=== PATIENT | female | born 1990 | race Caucasian/White ===

== ENCOUNTER 2017-09-01 10:13 | Emergency (ER) | END 2017-09-01 10:33 | disposition home or self-care (01) ==

== ENCOUNTER 2017-09-06 09:40 | Emergency (ER) | END 2017-09-06 11:21 | disposition home or self-care (01) ==

== ENCOUNTER 2018-03-12 09:39 | Inpatient (IN) | payer MEDICAID ==
[~2018-03-12] VITALS: Ht 154.9 cm; Wt 108.7 kg
[2018-03-12] MEDS: LACTATED RINGER'S 1,000 ML IV SCH ×2 (06:00→11:18)
[~2018-03-12 09:39] MED LIST: ACET500C5 PO; EPINEPHrine 1 MG INJ ONE; SODI126M NASAL; VALA10004 PO
[2018-03-12 10:36] VITALS: BP 116/67; PULSE 95; RESP 18
[2018-03-12 10:38] VITALS: Ht 154.9 cm; Wt 108.7 kg
[2018-03-12] MEDS ORDERED: OXYTOCIN 30 UNITS/LR 500 ML IV PRN ×2 (11:00→17:00)
[2018-03-12] MEDS ORDERED: METHYLERGONOVINE 0.2 MG INJ IM PRN ×2 (11:00→17:00)
[2018-03-12] MEDS ORDERED: CARBOPROST 250 MCG INJ IM PRN ×2 (11:00→17:00)
[2018-03-12] MEDS ORDERED: CEFAZOLIN 2 GM/50 ML (PMX) 50 ML IVPB SCH (11:00)
[2018-03-12] MEDS ORDERED: MISOPROSTOL 200 MCG TAB PR PRN ×2 (11:00→17:00)
[2018-03-12] MEDS ORDERED: ONDANSETRON 4 MG INJ IV STA (11:11)
[2018-03-12] MEDS ORDERED: METOCLOPRAMIDE 10 MG INJ IV ONE (11:30)
[2018-03-12] MEDS ORDERED: FAMOTIDINE 20 MG INJ IV ONE (11:30)
--- NOTE | 2018-03-12 12:02 | HP ---
Date/Time of Note Date/Time of Note DATE: 03/12/18 TIME: 11:57 OB - History Hx of Present Free Text/Dictation 27 years old female . 39 weeks with history of previous , admitted to the hospital at 39 weeks gestation for repeat top taper machine Complaint: 39 weeks history of previous Estimated Due Date: Mar 19, 2018 : 4 Para: 3 Care: Good Care Ultrasounds: Normal mid trimester US Obstetrical Complications: None Past Family/Social History * Past Medical, Surgical, Family and Obstetric Histories reviewed from chart. Rubella: immune RPR/VDRL: Negative GBS Status: Negative HBsAG: Negative OB Admission Exam Vital Signs Vital Signs Vital Signs Date Temp Pulse Resp B/P (MAP) Pulse Ox O2 O2 Flow FiO2 Time Delivery Rate 03/12/18 98.6 95 18 116/67 Room Air 10:36 (83) Physical Exam HEENT: WNL Heart: Rhythm Normal Lungs: Clear, Equal Abdomen: WNL Extremities: Normal Reflexes: Normal Cervical Dilatation: None Station: -2 Membranes: Intact Heart Rate: 130's Accelerations: Accelerations Present Decelerations: No Decelerations Varibility: Moderate Last 72 hours Lab Results CBC & BMP 03/12/18 10:50 OB Assessment/Plan Reason for admission: other (39 weeks . History of previous ) Other plan: 27 years old . 39 weeks . Admitted to the hospital for repeat C- section. Complication of the surgery including but not limited to bowel bladder injury wound infection and hematoma explained. All questions answered. JUAN M GRIER MD Mar 12, 2018 12:02
--- NOTE | 2018-03-12 12:06 | PREAC ---
Date/Time of Note Date/Time of Note DATE: 03/12/18 TIME: 12:05 Anesthesia Eval and Record Evaluation Time Pre-Procedure Interview DATE: 03/12/18 TIME: 12:05 Age 27 Sex female NPO: 8 hrs Preoperative diagnosis term ,previous Csection Planned procedure repeat Csection Past Medical History Past Medical History: Includes GI: Morbid obesity Surgery & Anesthesia Issues No known issue Meds Anticoagulation: No Beta Maciej within 24 hr: No Reason Beta Maciej not given: Pt. not on B-Maciej Active Scripts Acetaminophen* (Tylophen*) 500 Mg Capsule, 1 CAP PO Q6 PRN for PAIN AND OR ELEVATED TEMP, #30 CAP Prov:ROSINA DUARTE PA-C 09/06/17 Valacyclovir HCl (Valtrex) 1,000 Mg Tablet, 1000 MG PO TID for 7 Days, TAB Prov:ROSINA DUARTE PA-C 09/06/17 Sodium Chloride (Saline Nasal Mist) 126 Ml Mist, 1 SPRAY NASAL DAILY PRN for NASAL CONGESTION for 5 Days, BOTTLE Prov:MOSHE BUSH PA-C 09/01/17 Acetaminophen* (Tylophen*) 500 Mg Capsule, 1 CAP PO Q6H PRN for PAIN AND OR ELEVATED TEMP, #20 CAP Prov:MOSHE BUSH PA-C 09/01/17 Current Medications Lactated Ringer's 1,000 ml @ 125 mls/hr Q8H IV Last administered on 03/12/18at 11:18; Admin Dose 125 MLS/HR; Start 03/12/18 at 10:36 Cefazolin Sodium/ Dextrose 50 ml @ 100 mls/hr ONCE IVPB ; Start 03/12/18 at 11:00 Oxytocin/Lactated Ringer's 500 ml @ 125 mls/hr POST IV ; Start 03/12/18 at 11:00 Oxytocin/Lactated Ringer's 500 ml @ 0 mls/hr ONCE PRN IV VAGINAL BLEEDING; Start 03/12/18 at 11:00 Methylergonovine Maleate (Methergine) 0.2 mg ONCE PRN IM VAGINAL BLEEDING; Start 03/12/18 at 11:00 Carboprost Tromethamine (Hemabate) 250 mcg ONCE PRN IM VAGINAL BLEEDING; Start 03/12/18 at 11:00 Misoprostol (Cytotec) 1,000 mcg ONCE PRN IN VAGINAL BLEEDING; Start 03/12/18 at 11:00 Meds reviewed: Yes Allergies Coded Allergies: No Known Allergy (Unverified , 09/06/17) Allergies Reviewed: Yes Labs/Studies Labs Reviewed: Reviewed by anesthesiologist Result Diagram: 03/12/18 1050 Laboratory Tests 03/12/18 10:50 Blood Bank Test 03/12/18 10:50 Antibody Screen NEGATIVE Blood Type O POSITIVE Rh Immune Globulin Candidate NO test: Positive Pre-procedure Exam Last vitals Vital Signs Date Temp Pulse Resp B/P (MAP) Pulse Ox O2 O2 Flow FiO2 Time Delivery Rate 03/12/18 98.6 95 18 116/67 Room Air 10:36 (83) Airway: Adequate mouth opening, Adequate thyromental dist Mallampati: Mallampati III Teeth: Normal Lung: Normal Heart: Normal ASA Physical Status ASA physical status: 3 Emergency: None Planned Anesthetic Neuraxial: Spinal Planned Pain Management Sub-arachniod narcotics, Parenteral pain med, Other neuraxial med Pre-operative Attestations Prior to commencing anesthesia and surgery, the patient was re-evaluated, there was verification of: *The patient's identity *The results of appropriate recent lab work and preoperative vital signs *The above evaluation not changing prior to induction *Anesthetic plan, risk benefits, alternative and complications discussed with patient/family; questions answered; patient/family understands, accepts and wishes to proceed. MALAIKA MARINO MD Mar 12, 2018 12:06
[2018-03-12] MEDS ORDERED: morphine SULFATE/PF (10 MG/10 ML) INJ ONE (12:13)
[2018-03-12] MEDS ORDERED: OXYTOCIN 30 UNITS/LR 500 ML IV ONE (12:14)
[2018-03-12] MEDS ORDERED: BUPIVACAINE 0.75%/DEXT (SPINAL) 2 ML INJ ONE ×2 (12:14→12:27)
[2018-03-12] MEDS ORDERED: OXYTOCIN 10 UNIT INJ ONE (12:14)
[2018-03-12] MEDS ORDERED: FENTAnyl 50 MCG/ML VIAL IV PRN ×2 (12:30)
[2018-03-12] MEDS ORDERED: KETOROLAC 30 MG INJ IV PRN (12:30)
[2018-03-12] MEDS ORDERED: HYDROmorphONE 1 MG/5 ML IV SYRINGE IV PRN ×3 (12:30)
[2018-03-12] MEDS ORDERED: NALOXONE (0.4 MG/ML) INJ IV PRN (12:30)
[2018-03-12] MEDS ORDERED: ZOLPIDEM 5 MG TAB PO PRN (12:30)
[2018-03-12] MEDS ORDERED: ONDANSETRON 4 MG INJ IV PRN ×2 (12:30)
[2018-03-12] MEDS ORDERED: HYDROmorphONE 0.5 MG/0.5 ML SYG IV PRN ×2 (12:30)
[2018-03-12] MEDS ORDERED: DIPHENHYDRAMINE 50 MG INJ IV PRN ×2 (12:30)
[2018-03-12] MEDS ORDERED: PHENYLephrine (100 MCG/ML) 10ML SYG ONE (12:37)
[2018-03-12] MEDS: OXYTOCIN 30 UNITS/LR 500 ML IV SCH ×3 (14:15→20:58)
--- NOTE | 2018-03-12 14:29 | OPR ---
Date/Time of Note Date/Time of Note DATE: 03/12/18 TIME: 14:12 Operative Report Free Text/Dictation 27 years old history of previous admitted at 39 weeks gestation for repeat with request for voluntary sterilization bilateral tubal ligation she has been informed of failure rate of tubal ligation, Increased risk of ectopic Future failure to conceive. Also complication of including but not limited to bowel bladder injury. Wound infection and hematoma, Procedure Date: Mar 12, 2018 Preoperative Diagnosis 39 weeks history of previous . She has signed consent for voluntary sterilization bilateral tubal ligation Postoperative Diagnosis Same as above Operation/Procedure Performed Repeat bilateral tubal ligation Surgeon see signature line Manager Of Financial ATTILA PALM Second Manager Of Financial: Yris Anesthesia Type: spinal Estimated Blood Loss: other (500 cc) Transfusion none Specimen 2 separate segments of right and left fallopian tube sent to pathology Grafts/Implants none Complications none Pt Condition Post Procedure: stable Procedure Description Under satisfactory spinal anesthesia patient prepped and draped and placed in supine position. Pfannenstiel incision was made.old scar was removed incision carried through the subcutaneous tissue. Fascia incised to the length of incision. Rectus muscle divided in midline. Peritoneum exposed and entered to a vertical incision. Exploration of abdomen revealed [gravid uterus at term normal-appearing tubes and ovaries.] Bladder flap was developed. Transverse incision was made in the lower segment of the uterus. Amniotic sac ruptured, [clear amniotic fluid noted.]Live baby girl was delivered from unengaged vertex.Naso oropharyngeal suction was performed. Baby handed to the team for immediate attention. Patient received 20 units of Pitocin. Placenta delivered manually intact. Uterine cavity cleaned with a wet sponge and drainage established. Uterus closed in 2 layers using Monocryl #1 in continuous fashion. Bilateral tubal ligation performed by identifying the right fallopian tube the fimbria grasped by a [place]. Fimbria and portion of the ampulla resected, suture material used #0 plain catgut was reinforced with the same suture material, cut end of the tube was cauterized and the specimen submitted to the pathology. The same procedure performed for the opposite side. Peritoneal cavity irrigated with warm saline. Sponge needle instrument reported to be correct. Abdominal peritoneum closed with 2-0 chromic catgut continuously. Fascia closed with #1 PDS in a continuous fashion. Subcutaneous tissue irrigated with warm saline and approximated with 2-0 chromic catgut skin closed with N sorb. Estimated blood loss [500]. Urine bag containing [200] mL of [clear] urine. Patient tolerated procedure well and transferred to recovery room in good condition. JUAN M GRIER MD Mar 12, 2018 14:25
--- NOTE | 2018-03-12 16:45 | NUR ---
Admitted to the unit, oriented to the room. Fundus firm, lochia moderate, denies pain at this time. Call light within reach.
[2018-03-12 16:50] VITALS: BP 111/50; PULSE 82; RESP 18
[2018-03-12] MEDS ORDERED: OXYCODONE/ACETAMINOPHEN (5/325) TAB PO PRN ×2 (17:00)
[2018-03-12] MEDS ORDERED: CEFAZOLIN 1 GM/50 ML (PMX) 50 ML IVPB SCH (17:00)
[2018-03-12] MEDS ORDERED: HYDROCODONE/APAP (5/325) TAB PO PRN (17:00)
[2018-03-12] MEDS ORDERED: LANOLIN HPA 1 PKT TOP PRN (17:00)
[2018-03-12 19:20] VITALS: BP_SYST 108; BP_SYST 98; BP_DIAS 59; BP_DIAS 69; PULSE 66; PULSE 81; RESP 19
[2018-03-12] MEDS: SENNA/DOCUSATE NA (8.6MG/50MG) TAB PO SCH (20:58)
[2018-03-12] MEDS ORDERED: VALACYCLOVIR 500 MG TAB PO SCH (21:00)
--- NOTE | 2018-03-12 21:43 | PAC ---
Date/Time of Note Date/Time of Note DATE: 03/12/18 TIME: 21:43 Post-Anesthesia Notes Post-Anesthesia Note Last documented vital signs Vital Signs Date Temp Pulse Resp B/P (MAP) Pulse Ox O2 O2 Flow FiO2 Time Delivery Rate 03/12/18 98.2 81 19 98/59 (72) 99 Room Air 19:20 Activity: WNL Respiratory function: WNL Cardiovascular function: WNL Mental status: Baseline Pain reasonably controlled: Yes Hydration appropriate: Yes Nausea/Vomiting absent: Yes MALAIKA MARINO MD Mar 12, 2018 21:43
[2018-03-13] VITALS: BP 111/59; PULSE 71; RESP 19
[2018-03-13] MEDS: KETOROLAC 30 MG INJ IV PRN ×2 (00:01→08:36)
[2018-03-13] MEDS: LACTATED RINGER'S 1,000 ML IV SCH ×3 (00:41→18:36)
[2018-03-13] MEDS: OXYTOCIN 30 UNITS/LR 500 ML IV SCH ×5 (00:41→20:41)
[2018-03-13 04:00] VITALS: BP 99/59; PULSE 74; RESP 20
--- NOTE | 2018-03-13 05:08 | NUR ---
eoss. stable. no respiratory distress. scanty lochia . fluids tolerated well . surgical incision intact clean & dry . patient get out from bed after 12 hours of delivery & no complaints of dizziness & ambulated good. pain iv med given once with no adverse reactions . bonding well with baby . fob at bedside for support. for cbc today
[2018-03-13] MEDS: SENNA/DOCUSATE NA (8.6MG/50MG) TAB PO SCH ×2 (09:00→21:24)
--- NOTE | 2018-03-13 09:41 | QN ---
Documentation Comment Post day 1 Afebrile Vital signs are stable Abdomen soft. Incision dry. Bowel sounds present. Ambulation encouraged Extremities normal JUAN M GRIER MD Mar 13, 2018 09:41
[2018-03-13] MEDS ORDERED: LACTATED RINGER'S 1,000 ML IV ONE (10:30)
--- NOTE | 2018-03-13 10:30 | NUR ---
Patient instructed to lye down flat as per Dr. Simpson's instructions. Patient agrees and verbalized understanding.
[2018-03-13 11:33] VITALS: BP 96/62; PULSE 86; RESP 14
--- NOTE | 2018-03-13 12:10 | NUR ---
Patient resting at this time. sleeping comfortably. no c/o at this time.
--- NOTE | 2018-03-13 14:15 | NUR ---
Patient remains comfortable at this time. still flat in bed.
[2018-03-13 17:06] VITALS: BP 119/76; PULSE 85; RESP 16
--- NOTE | 2018-03-13 17:45 | NUR ---
EOSS: Patient denies headache at this time. sitting in bed. reports feeling much better than this morning. Denies nausea or vomiting. Slept for a couple of hours this afternoon. Woodward catheter removed at this time. Due to void. Encouraged to call for assistance to get up to bathroom. Patient agrees and verbalizes understanding.
[2018-03-13] MEDS: IBUPROFEN 600 MG TAB PO SCH ×2 (18:38→23:52)
[2018-03-13 19:30] VITALS: BP 115/60; PULSE 92; RESP 19
[2018-03-13] MEDS: GUAIFENESIN/DM 5ML CUP PO PRN (21:24)
--- NOTE | 2018-03-13 21:47 | NUR ---
patient has cough & colds. called dr rice & ordered robitussin DM 10cc every 4 hours prn & ocean spray every 2 hours prn
[2018-03-13] MEDS: SALINE 0.65% 45 ML NAS SPRAY NASAL PRN (23:53)
[2018-03-14] MEDS: OXYTOCIN 30 UNITS/LR 500 ML IV SCH ×2 (00:41→04:41)
[2018-03-14] MEDS: LACTATED RINGER'S 1,000 ML IV SCH (02:36)
[2018-03-14 04:00] VITALS: BP 102/63; PULSE 80; RESP 20
[2018-03-14] MEDS: SALINE 0.65% 45 ML NAS SPRAY NASAL PRN ×2 (04:16→19:59)
[2018-03-14] MEDS: GUAIFENESIN/DM 5ML CUP PO PRN ×3 (04:16→20:07)
[2018-03-14] MEDS: IBUPROFEN 600 MG TAB PO SCH ×4 (05:52→23:10)
--- NOTE | 2018-03-14 06:32 | NUR ---
eoss. stable virtal signs. ambulating & voiding well. scanty lochia. has new meds for cough & colds , given & it helped her. bonding well with baby.pain well controlled with pain meds. no episode of headache in the entire shift.
[2018-03-14 07:50] VITALS: BP 87/59; PULSE 82; RESP 18
[2018-03-14] MEDS: SENNA/DOCUSATE NA (8.6MG/50MG) TAB PO SCH ×2 (09:16→21:20)
--- NOTE | 2018-03-14 13:07 | QN ---
Documentation Comment Post BTL day 2 Afebrile Vital signs are stable Abdomen soft. Incision dry. Bowel sounds present. Able to pass flatus. No bowel movement Enema recommended JUAN M RGIER MD Mar 14, 2018 13:07
[2018-03-14] MEDS ORDERED: NA PHOSPHATE/BIPHOS 133 ML ENEMA PR ONE (13:30)
[2018-03-14 15:52] VITALS: BP 107/64; PULSE 86; RESP 18
--- NOTE | 2018-03-14 17:57 | NUR ---
EOSS: VSS. AMBULATING AND VOIDING. SHOWERED TODAY. MOM CHOOSES TO COMBO FEED THE BABY. GOOD BONDING SEEN WITH THE BABY.
[2018-03-14] MEDS: HYDROCODONE/APAP (5/325) TAB PO PRN (19:24)
[2018-03-14 20:00] VITALS: BP 123/58; PULSE 95; RESP 20
[2018-03-15] MEDS: GUAIFENESIN/DM 5ML CUP PO PRN (01:32)
[2018-03-15] MEDS: SALINE 0.65% 45 ML NAS SPRAY NASAL PRN (01:32)
[2018-03-15 03:04] VITALS: BP 110/64; PULSE 75; RESP 20
--- NOTE | 2018-03-15 03:05 | NUR ---
EOSS COPING WELL WITH CARE OF BABY AND SELF, LOOKING FORWARD TO GOING HOME TODAY
[2018-03-15] MEDS: HYDROCODONE/APAP (5/325) TAB PO PRN ×2 (03:36→09:27)
[2018-03-15] MEDS: IBUPROFEN 600 MG TAB PO SCH ×2 (05:27→11:17)
[2018-03-15 08:00] VITALS: BP 86/61; PULSE 71; RESP 18
[2018-03-15] MEDS ORDERED: DIPHTH/TET/ACEL PERTUSS (ADULT) 0.5 ML VIAL IM* ONE (09:00)
[2018-03-15] MEDS: SENNA/DOCUSATE NA (8.6MG/50MG) TAB PO SCH (09:23)
--- NOTE | 2018-03-15 12:13 | PD.PPDC ---
REGULATORY COMPLIANCE DIRECTOR Discharge Instruction Condition [id number] Patient Condition: Hgxax7w Good Diet Eliek2Zl Diet: Gqigl9h Resume Regular Diet Activity/Restrictions Cvsou1Hd Activity: Fughk1d Normal Activity May Shower Aisfj4Vv Restrictions: Biqab3t No Exercising No Lifting No Driving No Sexual Activity Nothing in the Vagina No [place] No Tampons, douche Wound/Drain Care Instructions [id number] Wound/Drain Care Gfrjp9z Remove Steri Strips in 1 week Instructions: Follow-up Follow-up with Physician: 1, Week/Weeks Provider Information: Post instruction given recommended to make appointment to be seen at the office in 1 week Return to clinic for [id number] [employer]PER[employer]OR Instructions: Jojso5v Fever greater than 101 Chills Worsening abdominal pain Excessive Vaginal Bleeding More than 2 pads per hour Unable to tolerate diet [id number] OB Instructions: [id number] Breast Tenderness Depression Blurried Vision Headache Dgdiv6Md Surgical Instructions: Vcelj9v Incisional Drainage Incisional Redness JUAN M GRIER MD Mar 15, 2018 12:13
--- NOTE | 2018-03-15 12:16 | DS ---
Date/Time of Note Date/Time of Note DATE: 03/15/18 TIME: 12:15 Discharge Summary Admission/Discharge Info Admit Date/Time Mar 12, 2018 at 09:39 Discharge Date/Time March 15, 2018 at 1300 Discharge Diagnosis Post repeat BTL Patient Condition: Good Consults None Procedures Repeat bilateral tubal ligation Hx of Present Illness Term history of previous with request for BTL Hospital Course Satisfactory recovery uneventful Home Meds Active Scripts Acetaminophen* (Tylophen*) 500 Mg Capsule, 1 CAP PO Q6 PRN for PAIN AND OR ELEVATED TEMP, #30 CAP Prov:ROSINA DUARTE PA-C 09/06/17 Valacyclovir HCl (Valtrex) 1,000 Mg Tablet, 1000 MG PO TID for 7 Days, TAB Prov:ROSINA DUARTE PA-C 09/06/17 Sodium Chloride (Saline Nasal Mist) 126 Ml Mist, 1 SPRAY NASAL DAILY PRN for NASAL CONGESTION for 5 Days, BOTTLE Prov:MOSHE BUSH PA-C 09/01/17 Acetaminophen* (Tylophen*) 500 Mg Capsule, 1 CAP PO Q6H PRN for PAIN AND OR ELEVATED TEMP, #20 CAP Prov:MOSHE BUSH PA-C 09/01/17 Follow-up Plan Post instruction given recommended to make appointment to be seen at the office in 1 week Primary Care Provider Care Physician No Primary Time spent on discharge: < 30 minutes JUAN M GRIER MD Mar 15, 2018 12:16
--- NOTE | 2018-03-15 12:36 | NUR ---
PT DC'D HOME IN STABLE COND WITH BABY VIA WHEELCHAIR. PT WILL BE SEEN IN THE CLINIC IN [address] GRIER. DISCHARGE INST GIVEN AND ALL QUESTIONS ANSWERED AND PT VERBALIZED UNDERSTANDING OF ALL INFO GIVEN. Addendum: 03/15/18 at 1238 by NICHO FIGUEROA RN Amended: Links added.
== END 2018-03-15 13:14 | disposition home or self-care (01) | DRG 785 ==
LOC: L-D 09:39 → PP1 16:40
PROVIDERS: ADMIT Obstetrics & Gynecology; ATTEND Obstetrics & Gynecology
PROC: 0UL70ZZ Occlusion of Bilateral Fallopian Tubes, Open Approach (ICD-10-PCS; 2018-03-12)
PROC: 3E033VJ Introduction of Other Hormone into Peripheral Vein, Percutaneous Approach (ICD-10-PCS; 2018-03-12)
PROC: 10D00Z1 Extraction of Products of Conception, Low, Open Approach (ICD-10-PCS; principal; 2018-03-12 12:30)
DX: O34.211 Maternal care for low transverse scar from previous cesarean delivery (principal); Z30.2 Encounter for sterilization; Z3A.39 39 weeks gestation of pregnancy; Z37.0 Single live birth
CPT/HCPCS: 85025; 85610; 85730; 86592; 86850; 86900; 86901; 87340; 88302; 90686; 90715; 99464; J0171; J0690; J1885; J2274; J2370; J2405; J2590; J2765; J7120

== ENCOUNTER 2018-10-19 14:54 | Emergency (ER) | payer MEDICAID ==
[~2018-10-19] VITALS: Wt 90.0 kg
[~2018-10-19 14:54] MED LIST changes: +AMOX1TAB10 PO; -EPINEPHrine 1 MG INJ ONE; +OFLO5DRO46 RIGHT EYE
[2018-10-19 14:57] VITALS: BP 119/58; PULSE 68; RESP 18
--- NOTE | 2018-10-19 16:07 | ERD ---
ER Documentation Chief Complaint Chief Complaint right eye possible fb x 7 days HPI Patient is a 28 years old female no known past medical history presenting to the clinic for right eye irritation X 8 days. Reports scrubbing her bathroom he did with the metal scrub and believes that piece might of got into URI. She reports right eye pain with headache and redness. Patient denies using any OTC medication or eyedrops. She admits to blurriness of right eye. Patient reports that she has sensation of foreign body right eye. ROS All systems reviewed and are negative except as per history of present illness. Medications Home Meds Active Scripts Acetaminophen* (Tylophen*) 500 Mg Capsule, 1 CAP PO Q6 PRN for PAIN AND OR ELEVATED TEMP, #30 CAP Prov:ROSINA DUARTE PA-C 09/06/17 valACYclovir HCl (Valtrex) 1,000 Mg Tablet, 1000 MG PO TID for 7 Days, TAB Prov:ROSINA DUARTE PA-C 09/06/17 Sodium Chloride (Saline Nasal Mist) 126 Ml Mist, 1 SPRAY NASAL DAILY PRN for SHARA AL CONGESTION for 5 Days, BOTTLE Prov:MOSHE BUSH PA-C 09/01/17 Acetaminophen* (Tylophen*) 500 Mg Capsule, 1 CAP PO Q6H PRN for PAIN AND OR ELEVATED TEMP, #20 CAP Prov:MOSHE BUSH PA-C 09/01/17 Allergies Allergies: Coded Allergies: No Known Allergy (Unverified , 09/06/17) PMhx/Soc History of Surgery: No Anesthesia Reaction: No Hx Neurological Disorder: No Hx Respiratory Disorders: No Hx Cardiac Disorders: No Hx Psychiatric Problems: No Hx Miscellaneous Medical Probl: No Hx Alcohol Use: No Hx Substance Use: No Hx Tobacco Use: No Physical Exam Vitals Vital Signs Date Temp Pulse Resp B/P (MAP) Pulse Ox O2 O2 Flow FiO2 Time Delivery Rate 10/19/18 98.1 68 18 119/58 99 14:57 (78) Physical Exam Const: No acute distress Head: Atraumatic Eyes: Right Conjunctiva erythematous. Scrape noted on right eye without ay signs of foreign body. ENT: Normal External Ears, Nose and Mouth. Tympanic membrane erythematous without perforation or discharge bilaterally. Resp: Clear to auscultation bilaterally Cardio: Regular rate and rhythm, no murmurs Psych: Normal Mood and Affect Results 24 hrs Current Medications Medications Dose Sig/Yareli Start Time Status Last (Trade) Ordered Route PRN Stop Time Admin Dose Reason Admin Fluorescein 1 strip ONCE ONCE 10/19/18 DC Sodium RIGHT EYE 17:00 10/19/18 (Iavyp-O-Armb 17:01 p) Procedures/MDM Patient was seen and evaluated for right eye pain and blurriness. Tonometry post tetracaine administration revealed 14mmHg. Fluorescein eye stain of right eye reveals corneal abrasion. Patient stable ready for discharge. Follow-up with PCP. Follow-up with [facility]. Patient will be discharged with ofloxacin eyedrops and Augmentin for otitis media. Departure Diagnosis: Primary Impression: Corneal abrasion, right Encounter type: initial encounter Qualified Codes: S05.01XA - Injury of conjunctiva and corneal abrasion without foreign body, right eye, initial encounter Additional Impression: Otitis media Otitis media type: suppurative Chronicity: acute Laterality: bilateral Recurrence: non-recurrent Spontaneous tympanic membrane rupture: without spontaneous rupture Qualified Codes: H66.003 - Acute suppurative otitis media without spontaneous rupture of ear drum, bilateral Patient Instructions: Corneal Abrasion, Otitis Media, Abx Tx (Adult) Referrals: [facility] Additional Instructions: Paciente aconseja volver a Departamento de urgencias inmediatamente para sntomas nuevos o que empeoran . Paciente aconseja posteriores con el PCP en 2-3 otto . Paciente verbaliza la comprehensin y est de acuerdo con el tratamiento y el curso de accin. Si el paciente no tiene ninguna de atencin primaria pueden seguir [facility] [address] [place] [address] o [facility] + [address] [address] GR[place] ANGELES PA-C Oct 19, 2018 16:07
[2018-10-19] MEDS ORDERED: FLUORESCEIN STRIP RIGHT EYE ONE (17:00)
== END 2018-10-19 17:17 | disposition home or self-care (01) ==
LOC: FTE 14:54
DX: S05.01XA Injury of conjunctiva and corneal abrasion without foreign body, right eye, initial encounter (principal); X58.XXXA Exposure to other specified factors, initial encounter; Y92.9 Unspecified place or not applicable
CPT/HCPCS: Z7502; Z7610; 99283